=== PATIENT | male | born 1980 ===

== ENCOUNTER 2023-01-30 19:41 | Emergency (ER) | payer SELFPAY ==
--- NOTE | 2023-01-30 20:33 | EDPHYS ---
Physician Documentation [facility] Name: Sree Choi Age: 42 yrs Sex: Male : 1980 Arrival Date: 01/30/2023 Time: 19:41 Bed 26 Private MD: ED Physician Sharad Paez HPI: 01/30 20:22 This 42 yrs old Male presents to ER via Unassigned with complaints of Chest brayan Pain. 20:22 The patient or guardian reports chest pain that is located primarily in the substernal brayan area. Onset: 4 hour(s) ago. The pain does not radiate. Associated signs and symptoms: Pertinent positives: nausea. The chest pain is described as a heaviness, a pressure. Duration: The patient or guardian reports a single episode, that is still ongoing. Modifying factors: The symptoms are alleviated by nothing. the symptoms are aggravated by nothing. Severity of pain: At its worst the pain was moderate severe in the emergency department the pain is unchanged. The patient has not experienced similar symptoms in the past. Historical: - Allergies: 20:25 No Known Allergies; cm10 - Home Meds: 20:25 None [Active]; cm10 - PMHx: 20:25 None; cm10 - PSHx: 20:25 None; cm10 - Immunization history:: Adult Immunizations unknown. - Social history:: Smoking status: Patient reports the use of cigarette tobacco products. - Family history:: not pertinent. ROS: 20:22 Constitutional: Negative for fever, chills, and weight loss, Eyes: Negative for injury, brayan pain, redness, and discharge, ENT: Negative for injury, pain, and discharge, Neck: Negative for injury, pain, and swelling, Cardiovascular: Negative for chest pain, palpitations, and edema, Respiratory: Negative for shortness of breath, cough, wheezing, and pleuritic chest pain, Abdomen/GI: Negative for abdominal pain, nausea, vomiting, diarrhea, and constipation, Back: Negative for injury and pain, : Negative for injury, bleeding, discharge, and swelling, MS/Extremity: Negative for injury and deformity, Skin: Negative for injury, rash, and discoloration, Neuro: Negative for headache, weakness, numbness, tingling, and seizure, Psych: Negative for depression, anxiety, suicide ideation, homicidal ideation, and hallucinations, Allergy/Immunology: Negative for hives, rash, and allergies, Endocrine: Negative for neck swelling, polydipsia, polyuria, polyphagia, and marked weight changes, Hematologic/Lymphatic: Negative for swollen nodes, abnormal bleeding, and unusual bruising. 20:22 MS/extremity: Negative for Exam: 20:25 Constitutional: This is a well developed, well nourished patient who is awake, alert, brayna and in no acute distress. Head/Face: Normocephalic, atraumatic. Eyes: Pupils equal round and reactive to light, extra-ocular motions intact. Lids and lashes normal. Conjunctiva and sclera are non-icteric and not injected. Cornea within normal limits. Periorbital areas with no swelling, redness, or edema. ENT: Nares patent. No nasal discharge, no septal abnormalities noted. Tympanic membranes are normal and external auditory canals are clear. Oropharynx with no redness, swelling, or masses, exudates, or evidence of obstruction, uvula midline. Mucous membranes moist. Neck: Trachea midline, no thyromegaly or masses palpated, and no cervical lymphadenopathy. Supple, full range of motion without nuchal rigidity, or vertebral point tenderness. No Meningismus. Chest/axilla: Normal chest wall appearance and motion. Nontender with no deformity. No lesions are appreciated. Cardiovascular: Regular rate and rhythm with a normal S1 and S2. No gallops, murmurs, or rubs. Normal PMI, no JVD. No pulse deficits. Respiratory: Lungs have equal breath sounds bilaterally, clear to auscultation and percussion. No rales, rhonchi or wheezes noted. No increased work of breathing, no retractions or nasal flaring. Abdomen/GI: Soft, non-tender, with normal bowel sounds. No distension or tympany. No guarding or rebound. No evidence of tenderness throughout. Back: No spinal tenderness. No costovertebral tenderness. Full range of motion. Male : Normal genitalia with no discharge or lesions. Skin: Warm, dry with normal turgor. Normal color with no rashes, no lesions, and no evidence of cellulitis. MS/ Extremity: Pulses equal, no cyanosis. Neurovascular intact. Full, normal range of motion. Neuro: Awake and alert, GCS 15, oriented to person, place, time, and situation. Cranial nerves II-XII grossly intact. Motor strength 5/5 in all extremities. Sensory grossly intact. Cerebellar exam normal. Normal gait. Psych: Awake, alert, with orientation to person, place and time. Behavior, mood, and affect are within normal limits. 20:25 ECG was reviewed by the Attending Physician. 21:13 ECG was reviewed by the Attending Physician. brayan Vital Signs: 20:15 BP 162 / 119; Pulse 132; Resp 18; Pulse Ox 100% on R/A; cm10 20:45 BP 158 / 96; Pulse 140; Pulse Ox 100% on 2 lpm NC; cm10 20:56 BP 139 / 121; Pulse 116; Resp 22; Pulse Ox 99% ; vc1 21:00 Weight 92.58 kg; vc1 21:03 BP 116 / 94; Pulse 108; Resp 27; Pulse Ox 97% ; vc1 21:10 BP 120 / 89; Pulse 104; Resp 12; Pulse Ox 99% on 3 lpm NC; vc1 MDM: 20:07 Patient medically screened. brayan 20:27 Differential diagnosis: abnormal EKG, acute myocardial infarction, acute pericarditis, brayan anxiety, chest wall pain, esophagitis, gastritis, hiatal hernia, pancreatitis, pulmonary embolus, stable angina, thoracic aortic disection, unstable angina. HEART Score: History: Highly Suspicious (2), ECG: Significant ST-deviation (2), Age: < or = 45 years (0), Risk Factors: > or = 3 Risk factors for atherosclerotic disease (2), [Active Smoker] [+ Family HX] [Obesity] Troponin: < or = 1 x Normal Limit (0). The patient was given aspirin in the Emergency Department. OPAL Risk Score: 1 - Three or more CAD risk factors, 1 - ST deviation >0.5mm, TOTAL SCORE = 2. Data reviewed: vital signs, nurses notes, lab test result(s), EKG, radiologic studies, plain films. Consideration of Admission/Observation Patient was admitted/placed on observation. Escalation of care including admission/observation considered. Independent interpretation of the following test(s) in the Emergency Department EKG: See my EKG interpretation above. Test considered but Not performed: CT: CT CHEST RO PE. Care significantly affected by the following chronic conditions: Obesity. Counseling: I had a detailed discussion with the patient and/or guardian regarding: the historical points, exam findings, and any diagnostic results supporting the discharge/admit diagnosis, the presence of at least one elevated blood pressure reading (>120/80) during this emergency department visit, lab results, the need to transfer to another facility, for higher level of care, [facility] does not immediately have the required specialist. 01/30 20:08 Order name: Basic Metabolic Panel; Complete Time: :24 [facility] 01/30 20:08 Order name: CBC with Diff; Complete Time: : [facility] 01/30 20:08 Order name: LFT's; Complete Time: : [facility] 01/30 20:08 Order name: Magnesium; Complete Time: : [facility] 01/30 20:08 Order name: NT PRO-BNP; Complete Time: : [facility] 01/30 20:08 Order name: PT-INR; Complete Time: : [facility] 01/30 20:08 Order name: Troponin HS; Complete Time: : [facility] 01/30 20:08 Order name: Lipase; Complete Time: : [facility] 01/30 20:08 Order name: XRAY Chest (1 view); Complete Time: : [facility] 01/30 20:08 Order name: EKG; Complete Time: 20: [facility] 01/30 21:03 Order name: EKG; Complete Time: 21: [facility] 01/30 20:08 Order name: Cardiac monitoring; Complete Time: 20:30 [facility] 01/30 20:08 Order name: EKG - Nurse/Tech; Complete Time: 20:30 [facility] 01/30 20:08 Order name: IV Saline Lock; Complete Time: 20:30 [facility] 01/30 20:08 Order name: Labs collected and sent; Complete Time: 20:30 [facility] 01/30 20:08 Order name: O2 Per Protocol; Complete Time: 20:30 [facility] 01/30 20:08 Order name: O2 Sat Monitoring; Complete Time: 20:30 [facility] 01/30 20:17 Order name: IV Saline Lock - Large Bore; Complete Time: 20:30 [facility] 01/30 21:03 Order name: EKG - Nurse/Tech; Complete Time: 21:07 [facility] EC:25 Rate is 132 beats/min. Rhythm is regular. QRS [place] is Normal. CO interval is normal. QT brayan interval is normal. No Q waves. T waves are Normal. ST Segment is elevated in leads II, III, aVF, V4, V5, V6. Clinical impression: Cardiac ischemia and Inferior [place] - acute. Interpreted by me. Reviewed by me. 21:13 Rate is 103 beats/min. Rhythm is regular. QRS [place] is Normal. CO interval is normal. brayan QRS interval is normal. QT interval is normal. No Q waves. T waves are Normal. ST Segment is elevated in leads III, aVF, V4, V5, V6. Clinical impression: Inferior [place] - acute. Interpreted by me. Reviewed by me. Administered Medications: 20:18 CANCELLED (Duplicate Order): Atenolol PO 50 mg PO once brayan 20:41 Drug: Aspirin PO Chewable Tablet 324 mg Route: PO; vc1 21:00 Follow up: Response: No adverse reaction vc1 20:41 Drug: Heparin ([place]-Bolus with thrombolytic) - HEParin IVP 60 units/kg {Co-Signature: lg3 vc1 (Erin Pepe RN).} Route: IVP; Site: left antecubital; 21:36 Follow up: Response: No adverse reaction vc1 20:41 Drug: morphine IVP or IV 4 mg Route: IVP; Infused Over: 4 mins; Site: left antecubital; vc1 21:27 Follow up: Response: No adverse reaction; Marked relief of symptoms vc1 20:44 Drug: Tenecteplase IV 50 mg {Co-Signature: cm10 (Adrienne Currie RN).} Route: IV; vc1 Rate: per protocol; Site: left antecubital; 20:45 Follow up: Response: gums slightly bleeding; IV Status: Completed infusion; IV Intake: vc1 10ml 20:46 Drug: Clopidogrel PO 300 mg Route: PO; vc1 21:00 Follow up: Response: No adverse reaction vc1 20:47 Drug: Ondansetron IVP 4 mg Route: IVP; Site: left antecubital; vc1 21:00 Follow up: Response: No adverse reaction; Marked relief of symptoms vc1 20:48 Drug: NS 0.9% IV 1000 ml Route: IV; Rate: 125 ml/hr; Site: left antecubital; vc1 21:28 Follow up: IV Status: Infusion continued upon transfer vc1 20:48 Drug: Heparin ([place] Drip) - (D5W IV 500 ml, [place] [address] units) 12 units/kg/hr vc1 {Co-Signature: lg3 (Erin Pepe RN).} Route: IV; Rate: calculated rate; Site: left antecubital; 21:36 Follow up: IV Status: Infusion continued upon transfer vc1 20:50 Drug: Metoprolol IVP 2.5 mg Route: IVP; Site: right antecubital; vc1 20:56 Follow up: BP 139 / 121; Pulse 116 bpm; Resp 22 bpm; Pulse Ox 99% vc1 20:52 Drug: Ativan IVP 1 mg Route: IVP; Site: right antecubital; cm10 21:00 Follow up: Response: No adverse reaction; Marked relief of symptoms vc1 20:57 Drug: Metoprolol IVP 2.5 mg Route: IVP; Site: right antecubital; vc1 21:03 Follow up: BP 116 / 94; Pulse 108 bpm; Resp 27 bpm; Pulse Ox 97% vc1 21:03 Drug: Metoprolol IVP 2.5 mg Route: IVP; Site: right antecubital; vc1 21:10 Follow up: BP 120 / 89; Pulse 104 bpm; Resp 12 bpm; Pulse Ox 99% 3 lpm Nasal Cannula vc1 Disposition: 21:14 Critical Care:. brayan Disposition Summary: 01/30/23 20:32 Transfer Ordered Transfer Location: [facility] brayan Reason: Higher level of care brayan Condition: Serious brayan Problem: new brayan Symptoms: have improved brayan Accepting Physician: TO DR HOLM(01/30/23 21:36) vc1 Diagnosis - ST elevation (STEMI) myocardial infarction of inferior wall brayan - Tachycardia, unspecified brayan - Essential (primary) hypertension brayan - Type 2 diabetes mellitus with hyperglycemia brayan - Elevated white blood cell count, unspecified brayan - Acute kidney failure, unspecified brayan Forms: - Medication Reconciliation Form brayan - SBAR form brayan Critical care time excluding procedures: 21:14 Critical care time: Bedside Care: 30 minutes, Consultation: 10 minutes, Family brayan Intervention: 5 minutes. Total time: 45 minutes Signatures: Dispatcher [employer] Sharad Nath MD MD cha Calcote, Vanessa, RN RN vc1 Adrienne Currie RN RN cm10 Erin Pepe RN lg3 Adrienne Currie RN cm10 Corrections: (The following items were deleted from the chart) 20:18 20:17 Atenolol PO 50 mg PO once ordered. brayan schmidt 21: 20:[address] MIHAI schmidt cha 21:36 21:[address] MIHAI schmidt vc1
--- NOTE | 2023-01-30 20:33 | ER ---
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 Pt states that the pain is to the center of his chest and describes it as pressure. EKG done in triage at 2012 and showed STEMI and taken to Dr. Paez. Coronavirus screen: Vaccine status: Patient reports being unvaccinated. Ebola Screen: No symptoms or risks identified at this time. Initial Sepsis Screen: Does the patient meet any 2 criteria? No. Patient's initial sepsis screen is negative. Does the patient have a suspected source of infection? No. Patient's initial sepsis screen is negative. Risk Assessment: Do you want to hurt yourself or someone else? Patient reports no desire to harm self or others. Onset of symptoms was January 30, 2023. 20:15 Method Of Arrival: Ambulatory cm10 20:15 Acuity: EUNICE 1 cm10 20:15 Note Pt states he has only had one cigarette today. vc1 Triage Assessment: 20:25 General: Appears in no apparent distress. uncomfortable, Behavior is anxious. Pain: vc1 Complains of pain in anterior aspect of left upper chest, mid-sternal area and left breast Pain does not radiate. Pain currently is 10 out of 10 on a pain scale. Quality of pain is described as pressure, sharp, Pain began 3 hours ago. Is continuous, Alleviated by nothing. Aggravated by nothing Noted to be grimacing, Also complains of diaphoresis. Historical: - Allergies: 20:25 No Known Allergies; cm10 - Home Meds: 20:25 None [Active]; cm10 - PMHx: 20:25 None; cm10 - PSHx: 20:25 None; cm10 - Immunization history:: Adult Immunizations unknown. - Social history:: Smoking status: Patient reports the use of cigarette tobacco products. - Family history:: not pertinent. Screenin:19 [facility] ED Fall Risk Assessment (Adult) History of falling in the last 3 months, vc1 including since admission No falls in past 3 months (0 pts) Confusion or Disorientation No (0 pts) Intoxicated or Sedated Impaired Gait No (0 pts) Mobility Assist Device Used No (0 pt) Altered Elimination No (0 pt) Score/Fall Risk Level 0 - 2 = Low Risk Oriented to surroundings, Maintained a safe environment, Educated pt \T\ family on fall prevention, incl call for assistance when getting out of bed. Abuse screen: Denies threats or abuse. Nutritional screening: No deficits noted. Tuberculosis screening: No symptoms or risk factors identified. Assessment: 20:47 Also complains of nausea. General: Appears in no apparent distress. Behavior is cm10 cooperative, anxious. Pain: Complains of pain in chest Pain does not radiate. Pain currently is 10 out of 10 on a pain scale. Quality of pain is described as Pressure Pain began 4 hours ago. 20:47 Tenecteplase (TNKase) screening: Indications for treatment: Presentation consistent vc1 with AMI: Yes. Relief from sublingual Nitroglycerin: No. EKG evidence of Acute Myocardial Infarction with ST elevation: Yes. Onset of symptoms less than 12 hours or evidence of ongoing ischemia: Yes. 21:15 Reassessment: Patient and/or family updated on plan of care and expected duration. Pain vc1 level reassessed. Patient states symptoms have improved. 21:15 Cardiovascular: Reports chest pain, Rhythm is Sinus tachycardia; STEMI Chest pain is vc1 described as severe, Pain is 6 out of 10 on a pain scale. Vital Signs: 20:15 BP 162 / 119; Pulse 132; Resp 18; Pulse Ox 100% on R/A; cm10 20:45 BP 158 / 96; Pulse 140; Pulse Ox 100% on 2 lpm NC; cm10 20:56 BP 139 / 121; Pulse 116; Resp 22; Pulse Ox 99% ; vc1 21:00 Weight 92.58 kg; vc1 21:03 BP 116 / 94; Pulse 108; Resp 27; Pulse Ox 97% ; vc1 21:10 BP 120 / 89; Pulse 104; Resp 12; Pulse Ox 99% on 3 lpm NC; vc1 ED Course: 19:43 Patient arrived in ED. ag3 20:07 Sharad Paez MD is Attending Physician. brayan 20:25 Radiology exam delayed due to PT COULD NOT BE FOUND IN THE LOBBY. jk 20:25 Client placed on continuous cardiac and pulse oximetry monitoring. NIBP monitoring vc1 applied. 20:25 Patient has correct armband on for positive identification. Bed in low position. Call vc1 light in reach. 20:25 No provider procedures requiring assistance completed. Oxygen administration via nasal vc1 cannula \T\ 3L/min. 20:28 Triage completed. cm10 20:28 Arm band placed on Patient placed in an exam room, on a stretcher, on oxygen, on cm10 personnel monitor, on pulse oximetry. EKG completed in triage. Results shown to MD. 20:30 Basic Metabolic Panel Sent. cm10 20:30 CBC with Diff Sent. cm10 20:30 LFT's Sent. cm10 20:30 Magnesium Sent. cm10 20:30 NT PRO-BNP Sent. cm10 20:30 PT-INR Sent. cm10 20:30 Troponin HS Sent. cm10 20:30 Inserted saline lock: 18 gauge in right antecubital area, using aseptic technique. cm10 Blood collected. 20:31 Inserted saline lock: 18 gauge in left antecubital area, using aseptic technique. cm10 20:43 XRAY Chest (1 view) In Process Unspecified. EDMS 20:51 Report given to GUILLERMINA Dunn at [facility]. cm10 21:30 Patient transferred, IV remains in place. vc1 21:31 Provided Education on: Procedure Consent, TNK administered. vc1 21:36 Sandra Mccoy, RN is Primary Nurse. vc1 Administered Medications: 20:18 CANCELLED (Duplicate Order): Atenolol PO 50 mg PO once brayan 20:41 Drug: Aspirin PO Chewable Tablet 324 mg Route: PO; vc1 21:00 Follow up: Response: No adverse reaction vc1 20:41 Drug: Heparin ([place]-Bolus with thrombolytic) - HEParin IVP 60 units/kg {Co-Signature: lg3 vc1 (Erin Pepe RN).} Route: IVP; Site: left antecubital; 21:36 Follow up: Response: No adverse reaction vc1 20:41 Drug: morphine IVP or IV 4 mg Route: IVP; Infused Over: 4 mins; Site: left antecubital; vc1 21:27 Follow up: Response: No adverse reaction; Marked relief of symptoms vc1 20:44 Drug: Tenecteplase IV 50 mg {Co-Signature: cm10 (Adrienne Currie RN).} Route: IV; vc1 Rate: per protocol; Site: left antecubital; 20:45 Follow up: Response: gums slightly bleeding; IV Status: Completed infusion; IV Intake: vc1 10ml 20:46 Drug: Clopidogrel PO 300 mg Route: PO; vc1 21:00 Follow up: Response: No adverse reaction vc1 20:47 Drug: Ondansetron IVP 4 mg Route: IVP; Site: left antecubital; vc1 21:00 Follow up: Response: No adverse reaction; Marked relief of symptoms vc1 20:48 Drug: NS 0.9% IV 1000 ml Route: IV; Rate: 125 ml/hr; Site: left antecubital; vc1 21:28 Follow up: IV Status: Infusion continued upon transfer vc1 20:48 Drug: Heparin ([place] Drip) - (D5W IV 500 ml, [place] [address] units) 12 units/kg/hr vc1 {Co-Signature: lg3 (Erin Pepe RN).} Route: IV; Rate: calculated rate; Site: left antecubital; 21:36 Follow up: IV Status: Infusion continued upon transfer vc1 20:50 Drug: Metoprolol IVP 2.5 mg Route: IVP; Site: right antecubital; vc1 20:56 Follow up: BP 139 / 121; Pulse 116 bpm; Resp 22 bpm; Pulse Ox 99% vc1 20:52 Drug: Ativan IVP 1 mg Route: IVP; Site: right antecubital; cm10 21:00 Follow up: Response: No adverse reaction; Marked relief of symptoms vc1 20:57 Drug: Metoprolol IVP 2.5 mg Route: IVP; Site: right antecubital; vc1 21:03 Follow up: BP 116 / 94; Pulse 108 bpm; Resp 27 bpm; Pulse Ox 97% vc1 21:03 Drug: Metoprolol IVP 2.5 mg Route: IVP; Site: right antecubital; vc1 21:10 Follow up: BP 120 / 89; Pulse 104 bpm; Resp 12 bpm; Pulse Ox 99% 3 lpm Nasal Cannula vc1 Medication: 21:31 VIS not applicable for this client. vc1 Intake: 20:45 IV: 10ml; Total: 10ml. vc1 Outcome: 20:32 ER care complete, transfer ordered by MD. schmidt 21:30 Transferred by helicopter to [facility], Transfer form completed. vc1 X-rays sent w/ patient. 21:30 Transferred by helicopter 21:30 Condition: stable 21:30 Instructed on the need for admit. 21:36 Patient left the ED. vc1 Signatures: Dispatcher [employer] EDMS Sharad Paez MD MD cha Gomez, Hunter Sena Vanessa RN RN vc1 Adrienne Currie RN RN cm10 Erin Pepe RN 3 Adrienne Currie RN cm10 Corrections: (The following items were deleted from the chart) 21:24 21:23 BP 120 / 89; Pulse 104 bpm; Resp 12 bpm; Pulse Ox 99% 3 lpm Nasal Cannula vc1 vc1 21: 21:25 Ondansetron IVP 4 mg IVP in left antecubital vc1 vc1 21:30 20:25 Patient transferred, IV remains in place. vc1 vc1
[2023-01-30] MEDS ORDERED: HEPARIN 5000 UNIT/ML 1 ML VIAL ONE (20:43)
[2023-01-30] MEDS ORDERED: ASPIRIN 81 MG CHEWABLE TABLET ONE (20:43)
[2023-01-30] MEDS ORDERED: MORPHINE 4 MG/ML SYR ONE (20:43)
[2023-01-30] MEDS ORDERED: HEPARIN/D5W 25,000 UNIT/500 ML BAG IV ONE (20:44)
[2023-01-30] MEDS ORDERED: ONDANSETRON 4 MG/2 ML VIAL ONE (20:44)
[2023-01-30] MEDS ORDERED: NA CHLORIDE 0.9% 1,000 ML ONE (20:44)
[2023-01-30] MEDS ORDERED: CLOPIDOGREL 75 MG TABLET ONE (20:44)
[2023-01-30] MEDS ORDERED: TENECTEPLASE 50 MG/10 ML VIAL IV ONE (20:44)
[2023-01-30 20:45] LABS: Hematocrit 42.9 % (39.6-49.0); MCV 85.3 fL (80-100); MPV 8.8 fL (7.6-11.3); RBC Red Blood Cell Count 5.03 M/uL (4.33-5.43)
[2023-01-30 20:50] LABS: Protime INR 1.18
[2023-01-30] MEDS ORDERED: LORazepam 2 MG/ML VIAL ONE (20:56)
[2023-01-30] MEDS ORDERED: METOPROLOL TARTRATE 5 MG/5 ML INJ IV ONE (20:56)
--- NOTE | 2023-01-30 20:59 | RAD REPORT ---
EXAM DESCRIPTION: Johnny Single View01/30/2023 8:41 pm CLINICAL HISTORY: Chest pain COMPARISON: none FINDINGS: The lungs appear clear of acute infiltrate. The heart is normal size IMPRESSION: No acute abnormalities displayed
[2023-01-30 21:14] LABS: Albumin 4.7 g/dL (3.4-5.0); Bilirubin Direct 0.2 mg/dL (0-0.2); Bilirubin Indirect, Calculated 0.6 mg/dL (0.2-0.8); Bilirubin Total 0.8 mg/dL (0.2-1.0); Magnesium 2.1 mg/dL (1.6-2.4); Potassium 4.1 mEq/L (3.5-5.1); Protein, Total 8.7 g/dL (6.4-8.2)
[2023-01-30 21:17] LABS: Troponin High Sensitivity 4027.2 pg/mL (<58.9)
[2023-01-30 22:11] VITALS: BP 120/89; O2SAT 99
--- NOTE | 2023-01-31 17:33 | EKG ---
Test Date: 2023-01-30 Test Time: 21:06:55 Glue Bone Drier: ADRIANNA MEASUREMENT RESULTS: Intervals: Rate: 103 FL: 154 QRSD: 102 QT: 344 QTc: 450 [place]: P: 54 FL: 154 QRS: 76 T: 32 INTERPRETIVE STATEMENTS: Sinus tachycardia Inferior infarct, possibly acute Anterolateral injury pattern ACUTE [place] Abnormal ECG Compared to ECG 12/17/2005 23:28:56 Myocardial infarct finding now present Sinus bradycardia no longer present Electronically Signed On 01-31-23 17:31:19 CDT by Campos Helms
--- NOTE | 2023-01-31 17:33 | EKG ---
Test Date: 2023-01-30 Test Time: 20:13:52 Weaver Apprentice: SANDI MEASUREMENT RESULTS: Intervals: Rate: 132 RI: 138 QRSD: 82 QT: 392 QTc: 580 [place]: P: 65 RI: 138 QRS: 66 T: 65 INTERPRETIVE STATEMENTS: Sinus tachycardia Inferior infarct, possibly acute ACUTE [place] / STEMI Consider right ventricular involvement in acute inferior infarct Abnormal ECG Compared to ECG 12/17/2005 23:28:56 Myocardial infarct finding now present Sinus bradycardia no longer present Electronically Signed On 01-31-23 17:31:28 CDT by Campos Helms
== END 2023-01-30 21:36 | disposition short-term general hospital (02) ==
LOC: ER 19:41
DX: I21.19 ST elevation (STEMI) myocardial infarction involving other coronary artery of inferior wall (principal); I10 Essential (primary) hypertension; R00.0 Tachycardia, unspecified; D72.829 Elevated white blood cell count, unspecified; E11.65 Type 2 diabetes mellitus with hyperglycemia; N17.9 Acute kidney failure, unspecified; Z72.0 Tobacco use
CPT/HCPCS: 36415; 71045; 80048; 80076; 83690; 83735; 83880; 84484; 85025; 85610; 92977; 93005; 99285; J1644; J2405; J3101; J7030